=== PATIENT | female | born 2005 | race Caucasian/White ===

== ENCOUNTER 2023-07-14 14:26 | Emergency (ER) | payer OTHER, SELFPAY ==
--- NOTE | 2023-07-14 14:36 | ED_ITS ---
HPI - General Adult General Chief complaint: Neuro Symptoms/Deficit Stated complaint: L armpit pain and numbness Time Seen by Provider: 07/14/23 16:35 Source: patient and family Mode of arrival: ambulatory Limitations: no limitations History of Present Illness HPI narrative: patient is a 17-year-old female who presents emergency department for evaluation of pain to the left arm. Reports onset 5 days ago, started to the left scapular region under the scapula was first noticed while in class while feeling increasingly anxious. However after calming down the pain persisted and noticed it radiating to the left axilla. at times pain is described as a pressure, she has had intermittent numbness to the left upper extremity. She denies any neck pain, neck stiffness, recent injury that would have provoked these symptoms. Pain is not exacerbated with deep inspiration, has no associated anterior chest pain reported shortness breath. She reports that she was seen by her primary care provider 4 days ago and had a chest x-ray which was normal. She began taking naproxen yesterday with some improvement in her pain. She admits to having COVID - 19 1.5 weeks ago, has had resolution of symptoms but continues to have a mild intermittent nonproductive cough. Denies any personal history of DVT /PE /malignancy, recent prolonged immobilization or surgical procedure. She was previously on oral contraceptives however she stopped taking them 2 months ago. Related Data Allergies Allergy/AdvReac Type Severity Reaction Status Date / Time No Known Allergies Allergy Verified 07/14/23 14:41 Review of Systems 2 Review of Systems: Yes all other systems are reviewed and are negative [facility] Past Medical History Attestation statement: The following information was validated with the patient. Source: old records reviewed Social History Social History Smoked in Last 30 Days: No Use of substances other than those prescribed or required for medical reasons: No Advance Directives: No Advance Directives Information Provided: No Physical Exam ED Vital Signs: Vital Signs - 24 hr 07/14/23 14:37 07/14/23 16:42 Temperature 98.9 F 98.4 F Pulse Rate 125 H 99 Respiratory Rate 18 18 Blood Pressure 136/81 134/71 Pulse Oximetry 95 100 Oxygen Delivery Method Room Air Room Air BMI result Body Mass Index 20.7 Appearance: Alert.?Oriented to person, place and time. No acute distress.?Normal affect. Eyes: Pupils equal, round and reactive to light.? ENT: Pharynx normal.?? Neck: Normal inspection.? Neck supple.? full range of motion. No midline cervical spine tenderness, step-offs, deformities.? CVS: Heart sounds normal. Normal heart rate and rhythm.? Pulses normal; 2+ radial pulse bilaterally.?? Respiratory: No respiratory distress.? Lung sounds clear to auscultation bilaterally?? Abdomen: Soft and non-tender. Normoactive bowel sounds. No pulsatile mass.?? Skin: Skin warm and dry.? Normal skin color.? Extremities: No lower extremity edema.? No calf ttp? Neuro: Moves all extremities spontaneously. Sensation intact bilaterally. CN II- XII intact. No focal neuro deficits. Ambulates with normal steady gait. Course Course Course Narrative: This is a rapid medical exam performed by Tanja Diop NP: Additional HPI, ROS, PE not included below will be deferred to primary provider. Patient is a 17-year-old female presenting to the ED with complaint of left axillary pain since Monday as well as numbness/tingling to left arm/hand. Seen at doctor's on Monday, had a CXR which was normal. States pain starts under left scapula and goes into axilla and down arm, describes as a pressure. Denies increased pain with deep inspiration. Recently had Covid, was asymptomatic for one week before current sxs began. No increased pain with palpation, 2+ radial pulse. Plan: labs, hcg Medical Decision Making Medical Decision Making MDM Narrative: Patient is a 17-year-old female who presents to the emergency department for evaluation of left upper back / scapular pain radiating into the axilla and down the arm with intermittent numbness and tingling As per HPI. The time my evaluation she appears well. She was initially tachycardic, on my assessment pulse was in the 90s. bilateral upper extremities are neurovascularly intact distally, 2+ radial pulses present bilaterally, not consistent with dissection.. Heart sounds are regular, no evidence of arrhythmia. EKG revealing normal sinus rhythm with ventricular rate of 95, ST elevation or ST depression, QTC is 409, unlikely ACS/ AFib/ arrhythmias etiology for symptoms. D- dimer less than 230, unlikely to have pulmonary embolism , case was discussed with ED attending, Dr. Pfeiffer, CT angio of the chest indicated at this time. Full range of motion is present to the left arm , not consistent with acute fracture or dislocation. No cervical spine pain to suggest cervical radiculopathy. She has had COVID- 19 recently, although she endorses minimal cough, discussed with patient possibility of pleuritic pain secondary to recent viral illness and cough. At this time suspect most likely musculoskeletal in nature, with possible neuropathy. Advised continued use of naproxen as previously prescribed and outpatient follow-up with her primary care provider. Strict return precautions. Differential Diagnosis Differential Diagnoses: The differential diagnosis associated with the presentation includes ( See narrative above) Admission/Observation Consideration of admission/observation: Escalation of care including admission/observation considered ( see narrative above) Lab Data MDM Lab Attestation statement: I reviewed the patient's lab results. ( see narrative above) 07/14/23 15:37 07/14/23 15:37 Labs: Lab Results 07/14/23 Range/Units 15:37 WBC 12.1 H (4.8-10.8) X10*3/uL RBC 5.01 (4.20-5.50) X10*6/uL Hgb 14.5 (12.0-16.0) g/dl Hct 42.4 (37.0-47.0) % MCV 84.6 (80.0-98.0) fL MCH 28.9 (27.0-33.0) pg MCHC 34.2 (31.0-35.0) g/dl RDW 13.1 (11.0-16.0) % Plt Count 305 (160-400) X10*3/uL MPV 9.2 L (9.4-12.3) fL Immature Gran % (Auto) 0.4 (0.0-0.4) % Neut % (Auto) 70.0 (45-73) % Lymph % (Auto) 24.4 (20-40) % [place] % (Auto) 4.2 (2-11) % Eos % (Auto) 0.9 (0-4) % Baso % (Auto) 0.1 (0-2) % Lymph # (Auto) 3.0 (1.2-4.9) X10*3/uL [place] # (Auto) 0.5 (0.1-1.2) X10*3/uL Eos # (Auto) 0.1 (0.0-0.4) X10*3/uL Baso # (Auto) 0.0 (0.0-0.2) X10*3/uL Abs Immat Gran (auto) 0.05 H (0.00-0.03) X10*3/uL Absolute Neuts (auto) 8.4 H (2.0-8.3) x10*3/uL Absolute Nucleated RBC 0.000 (0.0-0.012) X10*3/uL Nucleated RBC % (auto) 0.0 (0.0-0.2) /100WBC PT 11.9 (11.1-13.3) SEC INR 1.0 (0.9-1.1) D-Dimer High Sensitivty 170 NG/ML Sodium 141 (135-145) mmol/L Potassium 3.3 (3.3-5.1) mmol/L Chloride 108 (96-108) mmol/L Carbon Dioxide 20 L (22-29) mmol/L Anion Gap 16 (12-20) BUN 10 (9-16) mg/dL Creatinine 0.75 (0.5-1.4) mg/dL Estim Creat Clear Calc 77.9 Estimated GFR > 60 Random Glucose 130 H (60-115) mg/dL Calcium 9.8 (8.4-10.2) mg/dL Total Bilirubin 0.2 (0.0-1.0) mg/dL AST 29 (5-31) U/L ALT 34 H (0-31) U/L Alkaline Phosphatase 66 (39-117) U/L Total Protein 8.1 H (6.5-8.0) g/dL Albumin 4.8 (3.5-5.0) g/dL Beta HCG, Quant < 2 mIU/mL Independent Interpretation I performed an independent interpretation of an: EKG ( see narrative above) Independent Historian Clinical information obtained from an independent historian. History obtained from or confirmed by: Parent ( mother and father who confirms history) Tests considered The following testing was considered but not selected: CT angio deferred see narrative above, recent CXR unremarkable, no indication for repeat at this time. Prescription Management I considered prescription management with: Pain Medication ( Acetaminophen/ibuprofen) Discharge Plan Discharge Clinical Impression: Pain of left scapula Patient Disposition: Home, Self-Care Additional Instructions: continue use of the naproxen as prescribed by your primary care provider. Your testing today does not show evidence of significant infection, anemia, electrolyte abnormality, or abnormal kidney function. A D-dimer was obtained to screen for possible blood clot, this however was not elevated, and very unlikely that the symptoms you are describing would be due to a blood clot. Additionally, your oxygen levels for normal, you are not having any difficulty breathing that would be worrisome for a blood clot. Your EKG does not show any abnormal heart rhythm. Please follow-up closely with your primary care provider. You may return back to emergency department any new or worsening symptoms or concerns. Referrals: Romy Nassar MD [Primary Care Provider] - Print Language: Pashto
[2023-07-14 14:37] VITALS: BP 136/81; PULSE 125; RESP 18; TEMP 37.2; O2SAT 95; BMI 20.7
[2023-07-14 15:41] LABS: MANUAL DIFF FLAG NO
[2023-07-14 15:45] LABS: Basophils Percent Auto 0.1 % (0-2); Eosinophils Absolute Auto 0.1 X10*3/uL (0.0-0.4); Eosinophils Percent Auto 0.9 % (0-4); Hematocrit 42.4 % (37.0-47.0); Hemoglobin 14.5 g/dl (12.0-16.0); Imm Gran Abs Auto 0.05 X10*3/uL (0.00-0.03); Imm Gran Pct Auto 0.4 % (0.0-0.4); Lymphocytes Percent Auto 24.4 % (20-40); Mean Corpuscular HGB Conc 34.2 g/dl (31.0-35.0); Mean Corpuscular Hemoglobin 28.9 pg (27.0-33.0); Mean Corpuscular Volume 84.6 fL (80.0-98.0); Mean Platelet Volume 9.2 fL (9.4-12.3); Monocytes Absolute Auto 0.5 X10*3/uL (0.1-1.2); Monocytes Percent Auto 4.2 % (2-11); Neutrophils Absolute Auto 8.4 x10*3/uL (2.0-8.3); Platelet Count 305 X10*3/uL (160-400); Red Blood Count 5.01 X10*6/uL (4.20-5.50); Red Cell Distribution Width 13.1 % (11.0-16.0); White Blood Count 12.1 X10*3/uL (4.8-10.8)
[2023-07-14 15:50] LABS: Prothrombin Time 11.9 SEC (11.1-13.3)
[2023-07-14 16:08] LABS: Alanine Aminotransferase 34 U/L (0-31); Albumin Level 4.8 g/dL (3.5-5.0); Alkaline Phosphatase 66 U/L (39-117); Anion Gap 16 (12-20); Aspartate Amino Transferase 29 U/L (5-31); Bilirubin Total 0.2 mg/dL (0.0-1.0); Blood Urea Nitrogen 10 mg/dL (9-16); Calcium 9.8 mg/dL (8.4-10.2); Carbon Dioxide 20 mmol/L (22-29); Chloride 108 mmol/L (96-108); Creatinine Clr Calc Pharmacy 77.9; Estimated Glomerular Filt Rate > 60; Glucose Random 130 mg/dL (60-115); Potassium 3.3 mmol/L (3.3-5.1); Sodium 141 mmol/L (135-145); Total Protein 8.1 g/dL (6.5-8.0)
[2023-07-14 16:12] LABS: HCG Quantitative < 2 mIU/mL
[2023-07-14 16:42] VITALS: BP 134/71; PULSE 99; RESP 18; TEMP 36.9; O2SAT 100
[2023-07-14 16:51] LABS: D Dimer High Sensitivity 170 NG/ML
--- NOTE | 2023-07-14 17:37 | ECG_ITS ---
Test Reason : ARM PAIN Blood Pressure : / mmHG Vent. Rate : 095 BPM Atrial Rate : 095 BPM P-R Int : 148 ms QRS Dur : 084 ms QT Int : 326 ms P-R-T Axes : 063 038 014 degrees QTc Int : 409 ms Normal sinus rhythm Cannot rule out Anterior infarct , age undetermined Abnormal ECG No previous ECGs available Referred By: Katt Finn Electronically Signed By:Jeremiah Carrillo
[2023-07-14 18:49] VITALS: BP 136/70; PULSE 88; RESP 19; TEMP 36.8; O2SAT 100
== END 2023-07-14 18:51 | disposition home or self-care (01) ==
PROVIDERS: Nurse Practitioner Family; Registered Nurse Emergency; Emergency Provider Emergency Medicine; PCP Pediatrics
DX: M25.512 Pain in left shoulder (principal); R20.0 Anesthesia of skin; F41.9 Anxiety disorder, unspecified; R10.2 Pelvic and perineal pain; R94.31 Abnormal electrocardiogram [ECG] [EKG]; R06.02 Shortness of breath; R07.89 Other chest pain; Z79.899 Other long term (current) drug therapy
CPT/HCPCS: 36415; 80053; 84702; 85025; 85379; 85610; 93005; 99283; 99284

== ENCOUNTER → 2023-07-14 17:37 | Outpatient (BNV) | payer OTHER, SELFPAY | PROVIDERS: Emergency Provider Emergency Medicine; PCP Pediatrics; Visit Provider Internal Medicine Cardiovascular Disease | DX: R94.31 Abnormal electrocardiogram [ECG] [EKG] (principal) | CPT/HCPCS: 93010 ==